=== PATIENT | male | born 1960 | race Caucasian/White ===

== ENCOUNTER 2016-09-26 18:55 | Emergency (ER) | payer SELFPAY ==
[~2016-09-26] VITALS: Ht 188 cm; Wt 109.0 kg
[~2016-09-26 18:55] MED LIST: POTASSIUM BICARB/CIT ACID 25 MEQ TABLET.EFF PO NR
[2016-09-26] MEDS ORDERED: SODIUM CHLORIDE 0.9% 1,000 ML IV ONE (19:50)
[2016-09-26] MEDS ORDERED: ASPIRIN 81MG TABLET PO ONE (20:00)
[2016-09-26] MEDS ORDERED: LORAZEPAM 2MG/ML CPJ IV ONE (20:00)
[2016-09-26 20:19] LABS: BASOPHILS % 0.8 % (0.0-2.0); EOSINOPHILS % 1.6 % (0.0-5.0); HEMOGLOBIN. 14.7 g/dL (14.0-18.0); LYMPHOCYTES % 33.7 % (20.0-50.0); MEAN CORPUSCULAR HEMOGLOBIN 34.2 pg (28.0-32.0); MEAN CORPUSCULAR VOLUME 100.4 fL (80.0-94.0); MEAN PLATELET VOLUME 6.9 fl (7.4-10.4); MONOCYTES % 10.5 % (2.0-8.0); NEUTROPHILS % 53.4 % (40.0-76.0); PLATELET 324 x1000/uL (130-400); RED BLOOD CELL COUNT 4.29 mill/uL (4.7-6.1); RED CELL DISTRIBUTION WIDTH 14.3 % (11.6-14.6)
[2016-09-26 20:24] LABS: D-DIMER 0.24 mg/L FEU (<0.50); PARTIAL THROMBOPLASTIN TIME 24.5 sec (24.0-34.0); PROTHROMBIN TIME 10.1 sec
[2016-09-26 20:29] LABS: CARBON DIOXIDE 22 mEq/L (21-32); CHLORIDE 106 mEq/L (98-107); ETHANOL BLOOD 86 mg/dL; TROPONIN I < 0.02 ng/mL (0.00-0.04)
[2016-09-26] MEDS ORDERED: LABETALOL 5MG/ML SYR 20 MG/4 ML SYRINGE IV ONE (20:30)
[2016-09-26] MEDS ORDERED: MORPHINE SULFATE 4 MG/ML CPJ (NOT FOR IM USE) IV NR (21:24)
[2016-09-27 00:19] VITALS: BP 142/78
[2016-09-27] MEDS ORDERED: SODIUM CHLORIDE 0.9% 1,000 ML IV ONE (00:19)
== END 2016-09-27 00:19 | disposition home or self-care (01) ==
LOC: ER 18:55 → CANBEDREQ 09-28 02:27
DX: R07.2 Precordial pain (principal); I10 Essential (primary) hypertension; R06.00 Dyspnea, unspecified; Z86.718 Personal history of other venous thrombosis and embolism; Z86.711 Personal history of pulmonary embolism; Z98.890 Other specified postprocedural states
CPT/HCPCS: 36415; 71010; 71275; 80053; 83690; 83880; 84484; 85025; 85379; 85610; 85730; 93005; 93970; 96361; 96374; 96375; 99291; G0482; J2270; J2060; J3490; J7030